=== PATIENT | female | born 2000 | race Caucasian/White ===

== ENCOUNTER 2020-11-12 19:22 | Inpatient (IN) | payer BC, MEDICAID ==
[~2020-11-12] VITALS: Ht 162.6 cm; Wt 65.0 kg
[2020-11-12 19:43] VITALS: BP 119/64
[2020-11-12] MEDS ORDERED: OXYTOCIN 30U/ 0.9% NaCL 500ML 500 ML ONE (20:17)
[2020-11-12] MEDS ORDERED: NEWBORN KIT ONE (20:17)
[2020-11-12] MEDS ORDERED: TERBUTALINE 1 MG/ML, 1ML SQ PRN (20:30)
[2020-11-12] MEDS ORDERED: FENTANYL PF 100 MCG/2ML IVPush PRN (20:30)
[2020-11-12] MEDS ORDERED: FENTANYL PF 100 MCG/2ML IV PRN (20:30)
[2020-11-12] MEDS ORDERED: ONDANSETRON 2MG/ML, 2ML IVPush PRN ×2 (20:30→23:30)
[2020-11-12] MEDS ORDERED: LACTATED RINGERS 1,000 ML IV SCH ×2 (20:30→23:30)
[2020-11-12] MEDS ORDERED: TERBUTALINE 1 MG/ML, 1ML IVPush PRN (20:30)
[2020-11-12] MEDS ORDERED: PENICILLIN GK 5,000,000 UNITS in DEXTROSE 5% 100 ML IVPB ONE (20:30)
[2020-11-12] MEDS ORDERED: OXYTOCIN 30U/ 0.9% NaCL 500ML 500 ML IV ONE (20:30)
[2020-11-12] MEDS: BETAMETHASONE 6 MG/ML, 5ML IM SCH (20:45)
[2020-11-12 21:15] LABS: BASOPHILS % (AUTO) 0 % (0-1); EOSINOPHILS % (AUTO) 0 % (1-7); LYMPHOCYTES % (AUTO) 10 % (22-44); MEAN CORPUSCULAR HEMOGLOBIN 21.1 pg (27.0-34.8); MEAN CORPUSCULAR HGB CONC 30.2 g/dL (32.4-35.8); MEAN PLATELET VOLUME 9.8 fL (7.4-10.4); MONOCYTES % (AUTO) 5 % (2-9); NEUTROPHILS % (AUTO) 85 % (42-75); PLATELET COUNT 195 x10^3/uL (130-400); RED BLOOD COUNT 3.77 x10^6/uL (3.82-5.3); RED CELL DISTRIBUTION WIDTH 18.4 % (9.6-15.2)
[2020-11-12] MEDS ORDERED: FENTANYL/BUPIV./NS/PF 250 ML EPIDCONT ONE (21:29)
[2020-11-12] MEDS ORDERED: BUPIVACAINE 0.25% ONE (21:29)
[2020-11-12 21:33] LABS: MICROSCOPIC INDICATED
[2020-11-12] MEDS ORDERED: EPHEDRINE 50 MG/ML, 1ML IVPush PRN ×2 (22:30→23:30)
[2020-11-12] MEDS ORDERED: FENTANYL/BUPIV./NS/PF 250 ML EPIDCONT SCH ×2 (22:30→23:30)
[2020-11-12] MEDS ORDERED: LACTATED RINGERS 1,000 ML IVBOLUS PRN (23:30)
[2020-11-12] MEDS ORDERED: NALOXONE 0.4 MG/ML, 1ML IVPush PRN (23:30)
[2020-11-12] MEDS ORDERED: DIPHENHYDRAMINE 50 MG/ML, 1ML IVPush PRN (23:30)
[2020-11-13] MEDS: PENICILLIN GK 2,500,000 UNITS in DEXTROSE 5% 100 ML IVPB SCH ×2 (00:30→04:30)
[2020-11-13] MEDS ORDERED: OXYTOCIN 10 UNITS/ML, 1ML ONE (08:16)
[2020-11-13] MEDS ORDERED: RHOGAM FROM BLOOD BANK 1 NOTE EA IM/IV ONE (08:30)
[2020-11-13] MEDS ORDERED: HYDROcodone/APAP 5/325 TABLET PO PRN (08:30)
[2020-11-13] MEDS ORDERED: OXYcodone/APAP 5/325MG TABLET PO PRN (08:30)
[2020-11-13] MEDS ORDERED: DOCUSATE 100 MG CAPSULE PO PRN (08:30)
[2020-11-13] MEDS ORDERED: BISACODYL 10 MG SUPP PR PRN (08:30)
[2020-11-13] MEDS ORDERED: ACETAMINOPHEN 325 MG TABLET PO PRN (08:30)
[2020-11-13] MEDS ORDERED: OXYTOCIN 10 UNITS/ML, 1ML IM ONE (08:30)
[2020-11-13] MEDS ORDERED: IBUPROFEN 800 MG TABLET PO PRN (08:30)
[2020-11-13] MEDS ORDERED: MISOPROSTOL 200 MCG TABLET PR PRN (08:30)
[2020-11-13] MEDS ORDERED: ONDANSETRON 2MG/ML, 2ML IV PRN (08:30)
[2020-11-13] MEDS ORDERED: OXYTOCIN 30U/ 0.9% NaCL 500ML 500 ML IV SCH (08:30)
[2020-11-13] MEDS: PRENATAL VIT/IRON/FA 1 EACH TABLET PO SCH (09:00)
[2020-11-13] MEDS ORDERED: IBUPROFEN 600 MG TABLET ONE (11:33)
[2020-11-13] MEDS: IBUPROFEN 600 MG TABLET PO PRN ×2 (11:35→22:20)
[2020-11-13 11:45] VITALS: BP 108/59
[2020-11-13 14:24] LABS: BASOPHILS % (AUTO) 0 % (0-1); EOSINOPHILS % (AUTO) 0 % (1-7); LYMPHOCYTES % (AUTO) 5 % (22-44); MEAN CORPUSCULAR HGB CONC 30.1 g/dL (32.4-35.8); MEAN PLATELET VOLUME 10.1 fL (7.4-10.4); MONOCYTES % (AUTO) 6 % (2-9); NEUTROPHILS % (AUTO) 89 % (42-75); PLATELET COUNT 222 x10^3/uL (130-400); RED CELL DISTRIBUTION WIDTH 17.9 % (9.6-15.2)
[2020-11-13 16:10] VITALS: BP 94/52
[2020-11-13] MEDS: FERROUS GLUCONATE 324 MG TABLET PO SCH (16:43)
[2020-11-13 19:10] VITALS: BP 110/57
[2020-11-13] MEDS: BETAMETHASONE 6 MG/ML, 5ML IM SCH (20:30)
[2020-11-14] VITALS (7 sets, daily range): BP systolic 91–128; BP diastolic 55–77
[2020-11-14] MEDS ORDERED: IBUP-1223 PO (03:49)
[2020-11-14] MEDS ORDERED: FERR324T18 PO (03:50)
[2020-11-14] MEDS: IBUPROFEN 600 MG TABLET PO PRN ×3 (04:40→18:14)
[2020-11-14 05:37] LABS: BASOPHILS % (AUTO) 0 % (0-1); EOSINOPHILS % (AUTO) 0 % (1-7); LYMPHOCYTES % (AUTO) 12 % (22-44); MEAN CORPUSCULAR HEMOGLOBIN 21.2 pg (27.0-34.8); MEAN CORPUSCULAR HGB CONC 30.4 g/dL (32.4-35.8); MEAN PLATELET VOLUME 10.4 fL (7.4-10.4); MONOCYTES % (AUTO) 4 % (2-9); NEUTROPHILS % (AUTO) 84 % (42-75); PLATELET COUNT 171 x10^3/uL (130-400); RED BLOOD COUNT 3.08 x10^6/uL (3.82-5.3); RED CELL DISTRIBUTION WIDTH 17.7 % (9.6-15.2)
[2020-11-14 05:57] LABS: ANISOCYTOSIS 1+; POLYCHROMASIA 1+
[2020-11-14 06:00] LABS: <PLATELET ESTIMATE> ADEQUATE; <PLT MORPHOLOGY> NORMAL PLT MORPH; OVALOCYTES 1+
[2020-11-14] MEDS: FERROUS GLUCONATE 324 MG TABLET PO SCH ×2 (08:00→17:00)
[2020-11-14] MEDS: PRENATAL VIT/IRON/FA 1 EACH TABLET PO SCH (11:55)
[2020-11-14 18:53] LABS: BASOPHILS % (AUTO) 0 % (0-1); EOSINOPHILS % (AUTO) 0 % (1-7); LYMPHOCYTES % (AUTO) 16 % (22-44); MEAN CORPUSCULAR HEMOGLOBIN 22.7 pg (27.0-34.8); MEAN CORPUSCULAR HGB CONC 31.2 g/dL (32.4-35.8); MEAN PLATELET VOLUME 10.6 fL (7.4-10.4); MONOCYTES % (AUTO) 6 % (2-9); NEUTROPHILS % (AUTO) 78 % (42-75); PLATELET COUNT 184 x10^3/uL (130-400); RED BLOOD COUNT 3.65 x10^6/uL (3.82-5.3); RED CELL DISTRIBUTION WIDTH 20.1 % (9.6-15.2)
== END 2020-11-14 21:10 | disposition home or self-care (01) | DRG 805 ==
LOC: LDOP 19:22 → LDIP 20:06 → 2NW 11-13 10:29
PROVIDERS: ADMIT Obstetrics & Gynecology; ATTEND Obstetrics & Gynecology
PROC: 10E0XZZ Delivery of Products of Conception, External Approach (ICD-10-PCS; principal; 2020-11-13)
PROC: 10907ZC Drainage of Amniotic Fluid, Therapeutic from Products of Conception, Via Natural or Artificial Opening (ICD-10-PCS; 2020-11-13)
PROC: 3E0DXGC Introduction of Other Therapeutic Substance into Mouth and Pharynx, External Approach (ICD-10-PCS; 2020-11-13)
PROC: 00HU33Z Insertion of Infusion Device into Spinal Canal, Percutaneous Approach (ICD-10-PCS; 2020-11-13)
PROC: 3E0R3BZ Introduction of Anesthetic Agent into Spinal Canal, Percutaneous Approach (ICD-10-PCS; 2020-11-13)
PROC: 30233N1 Transfusion of Nonautologous Red Blood Cells into Peripheral Vein, Percutaneous Approach (ICD-10-PCS; 2020-11-14)
DX: O69.81X0 Labor and delivery complicated by cord around neck, without compression, not applicable or unspecified (principal); O60.14X0 Preterm labor third trimester with preterm delivery third trimester, not applicable or unspecified; Z37.0 Single live birth; O99.824 Streptococcus B carrier state complicating childbirth; Z20.822 Contact with and (suspected) exposure to COVID-19; O99.284 Endocrine, nutritional and metabolic diseases complicating childbirth; E55.9 Vitamin D deficiency, unspecified; Z3A.33 33 weeks gestation of pregnancy; O99.02 Anemia complicating childbirth; D50.9 Iron deficiency anemia, unspecified; O62.2 Other uterine inertia
CPT/HCPCS: 36415; 81001; 85025; 86592; 86850; 86900; 86923; 87086; 87635; 88307; G0378; J0702; J2540; J2590; J7120; P9016